=== PATIENT | female | born 1945 | race Caucasian/White ===

== ENCOUNTER 2024-02-28 23:53 | Inpatient (IN) | payer OTHER, MEDICARE, BC ==
[~2024-02-28] VITALS: Ht 157.5 cm; Wt 63.1 kg
[2024-02-29] MEDS ORDERED: FentaNYL Citrate 50 MCG/ML 2 ML Injection IV PRN ×2 (01:35→02:20)
[2024-02-29 02:05] LABS: BASOPHILS ABSOLUTE AUTO 0.09 K/mm3 (0.00-0.23); BASOPHILS PERCENT AUTO 1 % (0-2); EOSINOPHILS ABSOLUTE AUTO 0.08 K/mm3 (0.00-0.68); EOSINOPHILS PERCENT AUTO 1 % (0-6); Hematocrit 37.7 % (33.0-51.0); Hemoglobin 12.5 g/dL (11.5-16.0); IMMATURE GRAN ABSOLUTE AUTO 0.12 K/mm3 (0.00-0.10); IMMATURE GRAN PERCENT AUTO 1 % (0-1); LYMPHOCYTES ABSOLUTE AUTO 1.63 K/mm3 (0.84-5.20); LYMPHOCYTES PERCENT AUTO 12 % (21-46); MONOCYTES ABSOLUTE AUTO 1.18 K/mm3 (0.16-1.47); MONOCYTES PERCENT AUTO 8 % (4-13); Mean Corpuscular HGB 29.3 pg (26.0-34.0); Mean Corpuscular HGB Conc 33.2 g/dL (31.5-36.5); Mean Corpuscular Volume 88 fL (80-100); Mean Platelet Volume 12.1 fL (9.1-12.4); NEUTROPHILS ABSOLUTE AUTO 11.07 K/mm3 (1.96-9.15); NEUTROPHILS PERCENT AUTO 78 % (41-73); Platelet Count 196 K/mm3 (150-400); RDW Coefficient Variation 16.3 % (11.7-14.2); RDW Standard Deviation 52.8 fL (35.1-46.3); Red Blood Cell Count 4.27 M/mm3 (3.80-5.20); White Blood Cell Count 14.17 K/mm3 (4.00-11.30)
[2024-02-29 02:14] LABS: Albumin, Blood 3.1 g/dL (3.4-5.0); Albumin/Globulin Ratio 0.8 (0.8-1.8); Bilirubin, Total 0.3 mg/dL (0.1-1.0); Bun/Creatinine Ratio 19.5 (12.0-20.0); Calcium, Blood 8.5 mg/dL (8.5-10.1); Creatinine, Blood 0.97 mg/dL (0.40-1.00); Globulin, Blood 3.7 g/dL (2.2-4.0); Potassium, Blood 3.7 mmol/L (3.5-5.5); Total Protein, Blood 6.8 g/dL (6.4-8.2)
[2024-02-29] MEDS ORDERED: Ondansetron HCl 2 MG / ML 2ML Vial IV PRN (02:20)
[2024-02-29] MEDS ORDERED: NS 1,000 ML IV ONE (02:20)
[2024-02-29] MEDS ORDERED: FLU VACC TS2024-25(6MOS UP)/PF 45 MCG/0.5 ML SYRINGE IM ONE (02:20)
[2024-02-29] MEDS ORDERED: PANTOPRAZOLE SO40 M2 PO (04:22)
[2024-02-29] MEDS ORDERED: HYDRA25 PO (04:22)
[2024-02-29] MEDS ORDERED: LEVSOD75 PO (04:23)
[2024-02-29] MEDS ORDERED: METO50ER PO (04:23)
[2024-02-29] MEDS ORDERED: XARELTO20 M1 PO (04:23)
[2024-02-29] MEDS ORDERED: REPATHA SU140 MG/1 M SC (04:24)
[2024-02-29] MEDS ORDERED: Prinivil10 MG PO (04:24)
[2024-02-29] MEDS ORDERED: JARDIANCE10 MG PO (04:26)
[2024-02-29] MEDS ORDERED: ELIQUIS5 M3 PO (04:26)
[2024-02-29] MEDS ORDERED: CARTIA XT120 M9 PO (04:26)
[2024-02-29 04:30] VITALS: BP 138/81
[2024-02-29] MEDS ORDERED: CeFAZolin Sodium 2,000 MG in NS 100 ML IV SCH (05:00)
--- NOTE | 2024-02-29 05:55 | NUR ---
ADMIT NOTE/SHIFT SUMMARY REPORT RECEIVED FROM ER AT 0350. PT WAS BROUGHT UP ON GURNEY AND TRANSFERRED TO MEDICAL FLOOR ROOM 362 BED. PT ALERT ORIENTED CALLS APPROPRIATELY. C/O LT HIP PAIN R/T LT HIP FX. MEDICATED WITH FENTANYL WITH GOOD PAIN RELIEF. HERE AT THE BEDSIDE WITH THE PT. PT IS NPO AT THIS TIME PENDING SURGERY. PT HAS A HX OF CVA WITH RT SIDED WEAKNESS. REMAINS ON TELEMETRY AT AFIB AT 127. SHE HAS A HX OF AFIB. SHE WAS ORIENTED TO ROOM AND STAFF. STARTED ON NS AT 75. PT RESTING IN BED AT THIS TIME WITH CALL LIGHT IN REACH
[2024-02-29 08:23] VITALS: BP 134/84
[2024-02-29] MEDS ORDERED: Metoprolol Succinate 50 MG TABCR PO SCH (09:00)
[2024-02-29] MEDS ORDERED: Lisinopril 10 MG Tab PO SCH (09:00)
[2024-02-29 11:21] LABS: International Normalized Ratio 1.06; Prothrombin Time Results 11.3 Sec (9.7-11.5)
[2024-02-29 11:27] LABS: Anti-Xa UFH, PHA Monitoring >1.50 IU/mL
[2024-02-29] MEDS ORDERED: Dose Adjust by Pharmacy XX STA (11:53)
[2024-02-29] MEDS ORDERED: Heparin Sodium,Porcine/0.5 NS 500 ML IV SCH (11:55)
[2024-02-29] MEDS ORDERED: Tranexamic Acid 1,000 MG in NS 100 ML IV SCH (13:35)
[2024-02-29] MEDS ORDERED: HYDROcodone 5-APAP 325 TAB PO PRN (14:15)
[2024-02-29 15:40] VITALS: BP 143/75
--- NOTE | 2024-02-29 18:14 | NUR ---
SHIFT SUMMARY PT A&OX4 AND ANSWERS QUESTIONS APPROPRIATELY. PT RECEIVED SCHEDULED AND PRN MEDICATION. HEPARIN DRIP CURRENTLY GOING AT 15UNITS/KG/HR VERIFIED BY THERMODYNAMIC PHYSICIST HALLIE SERRANO. PT IS PAINFUL WITH MOVEMENT SURROUNDING LEF HIP. REPOSITIONED Q2HR TOLERATED BY PT. PT HAD FEMUR XRAYED TODAY AND A CT. VSS, NO COMPLAINTS OF CP/PRESSURE OR SOB. PT LEFT IN A POSITION OF SAFETY WITH FALL PRECAUTIONS IN PLACE AND CALL LIGHT IN REACH.
[2024-02-29 19:53] VITALS: BP 129/82
[2024-02-29] MEDS ORDERED: Clarify Drug Order XX ONE (20:30)
--- NOTE | 2024-02-29 20:35 | NUR ---
NO CHANGE IN HEPARIN DRIP PER PHARMACY- IN RANGE.
[2024-02-29] MEDS ORDERED: dilTIAZem HCL 240 MG CAP.CD PO SCH (21:00)
[2024-03-01] VITALS (19 sets, daily range): BP systolic 91–134; BP diastolic 58–87
[2024-03-01 03:08] LABS: BASOPHILS ABSOLUTE AUTO 0.05 K/mm3 (0.00-0.23); BASOPHILS PERCENT AUTO 1 % (0-2); EOSINOPHILS ABSOLUTE AUTO 0.07 K/mm3 (0.00-0.68); EOSINOPHILS PERCENT AUTO 1 % (0-6); Hematocrit 33.8 % (33.0-51.0); Hemoglobin 11.5 g/dL (11.5-16.0); IMMATURE GRAN ABSOLUTE AUTO 0.02 K/mm3 (0.00-0.10); IMMATURE GRAN PERCENT AUTO 0 % (0-1); LYMPHOCYTES ABSOLUTE AUTO 1.67 K/mm3 (0.84-5.20); LYMPHOCYTES PERCENT AUTO 19 % (21-46); MONOCYTES ABSOLUTE AUTO 1.42 K/mm3 (0.16-1.47); MONOCYTES PERCENT AUTO 16 % (4-13); Mean Corpuscular HGB 29.5 pg (26.0-34.0); Mean Corpuscular Volume 87 fL (80-100); Mean Platelet Volume 11.7 fL (9.1-12.4); NEUTROPHILS ABSOLUTE AUTO 5.82 K/mm3 (1.96-9.15); NEUTROPHILS PERCENT AUTO 64 % (41-73); Platelet Count 154 K/mm3 (150-400); RDW Coefficient Variation 16.4 % (11.7-14.2); RDW Standard Deviation 51.1 fL (35.1-46.3); White Blood Cell Count 9.05 K/mm3 (4.00-11.30)
[2024-03-01 03:31] LABS: Albumin, Blood 2.7 g/dL (3.4-5.0); Albumin/Globulin Ratio 0.7 (0.8-1.8); Bilirubin, Total 0.6 mg/dL (0.1-1.0); Bun/Creatinine Ratio 22.2 (12.0-20.0); Calcium, Blood 8.7 mg/dL (8.5-10.1); Creatinine, Blood 0.86 mg/dL (0.40-1.00); Globulin, Blood 3.7 g/dL (2.2-4.0); Potassium, Blood 3.9 mmol/L (3.5-5.5); Total Protein, Blood 6.4 g/dL (6.4-8.2)
--- NOTE | 2024-03-01 04:16 | NUR ---
REPORT GIVEN TO DAVID HANSON, WHO WILL BE TAKING OVER CARE OF PT. HEPARIN DRIP CONTINUES TO RUN AT 15 UNITS/KG/HR. PT REPOSITIONED THROUGH NIGHT. NPO AFTER MIDNIGHT.
--- NOTE | 2024-03-01 04:33 | NUR ---
NURSE NOTE THIS RN RECEIVED REPORT FROM LASHANDA HANSON. THIS RN TOOK OVER CARE OF PATIENT. PAUSED HEPARIN UNTIL 0530 PER PHARMACY.
[2024-03-01] MEDS ORDERED: Dose Adjust by Pharmacy XX STA (04:36)
[2024-03-01] MEDS ORDERED: Levothyroxine Sodium 0.088 MG Tab PO SCH (06:00)
--- NOTE | 2024-03-01 06:27 | NUR ---
SHIFT SUMMARY PATIENT IS ALERT AND ORIENTED. PATIENT HAS HAD NO ACUTE EVENTS THIS SHIFT. PATIENT HAS NEEDS FOR PAIN MEDS FROM PR. PATIENT HAS HAD NO COMPLAINED OF SOB, NAUSEA OR VOMITTING. PATIENT HAS HAD HEPARIN STOPPED AT 0600 FOR SURGERY TODAY. BED IN LOCKED AND LOWEST POSITION. CALL LIGHT IN PLACE. WILL MONITOR UNTIL SHIFT CHANGE.
[2024-03-01] MEDS ORDERED: Bupivacaine 0.5% Inj 10 ML Vial ONE (07:11)
[2024-03-01] MEDS ORDERED: propofoL 150 ML IV ONE (07:11)
--- NOTE | 2024-03-01 12:08 | NUR ---
PT TO OR AT 1200. PT A&OX4, VSS, NPO, KELLY IN PLACE DRAINING TO GRAVITY, AND PAIN MANAGED PER EMAR. THIS NURSE CALLED MATTING PRESS TENDER HALEY AND GAVE REPORT. MARGIE HARE TO ASSUME CARE OF PT.
[2024-03-01] MEDS ORDERED: CeFAZolin Sodium 2,000 MG VIAL ONE (12:15)
[2024-03-01] MEDS ORDERED: Lactated Ringer's 1,000 ML IV ONE (12:16)
[2024-03-01] MEDS ORDERED: Lactated Ringer's 1,000 ML IV SCH (12:20)
[2024-03-01] MEDS ORDERED: Ropivacaine 0.5% HCl/Pf 123.125 MG,EPINEPHrine HCL 0.25 MG,Ketorolac Tromethamine 15 MG... INFIL SCH (12:40)
[2024-03-01] MEDS ORDERED: Phenylephrine HCl 100 MCG/ML-NS 10MLSYR (1MG/10ML) ONE ×2 (13:41→14:43)
[2024-03-01] MEDS ORDERED: Ondansetron HCl 2 MG / ML 2ML Vial ONE ×2 (13:47→17:06)
[2024-03-01] MEDS ORDERED: Dexamethasone Sod Phos 10 MG/ML 1ML VIAL ONE (13:47)
[2024-03-01] MEDS ORDERED: Vasopressin 20 UNITS/ML 1ML Vial ONE ×2 (13:52→16:01)
--- NOTE | 2024-03-01 14:22 | NUR ---
03/01/24 1422 Ran,Garbielle SPINAL BLOCK COMPLETED BY UPON ENTRY TO OR. PATIENT TOLERATED WELL. PATIENT ARRIVED TO OR WITH KELLY CATHETER IN PLACE.
[2024-03-01] MEDS ORDERED: Ketorolac Tromethamine 30mg Vial ONE (14:49)
[2024-03-01] MEDS ORDERED: ePHEDrine Sulfate 50 MG/ML 1ML Injection ONE (15:13)
[2024-03-01] MEDS ORDERED: Tranexamic Acid 100 ML IV ONE (16:11)
[2024-03-01] MEDS ORDERED: Vancomycin HCl 1000 MG ADDvantage ONE ×2 (16:11→17:12)
[2024-03-01] MEDS ORDERED: Metoclopramide HCl 5MG / ML 2ML Vial ONE (17:06)
[2024-03-01] MEDS ORDERED: FentaNYL Citrate 50 MCG/ML 2 ML Injection ONE (17:06)
[2024-03-01] MEDS ORDERED: CeFAZolin Sodium 1000 mg Vial ONE ×2 (17:10)
[2024-03-01] MEDS ORDERED: NS 250 ML IV PRN (20:15)
--- NOTE | 2024-03-01 20:18 | NUR ---
PACU TO SURGICAL FLOOR PT ARRIVED TO UNIT FROM PACU POST LEFT TOTAL HIP SURGERY. PT DROWSY, BUT A/OX4. IV SL POST ARRIVAL. AQUACEL TO LEFT HIP 2X CDI WITH POLAR PACK IN PLACE. PT DENIES N/V, CP OR PAIN IN GENERAL. UNABLE TO WIGGLE TOES AT THIS TIME DUE TO SPINAL. KELLY TO GRAVITY. SCD'S TO BLE. FAMILY AT BEDSIDE. PT REQUESTING WARM TEA AT THIS TIME AND IS ABLE TO MAKE NEEDS KNOWN. POST-OP CONTIN. VITALS PER ORDER. CALL LIGHT IN REACH WITH BED LOCKED AND IN LOWEST POSITION.
[2024-03-01] MEDS ORDERED: CeFAZolin Sodium 2,000 MG in NS 100 ML IV SCH (22:00)
[2024-03-02 04:09] VITALS: BP 93/55
--- NOTE | 2024-03-02 04:50 | NUR ---
SHIFT SUMMARY POD 1 LEFT TOTAL HIP. AQUACEL CDI. CRYO TO HIP TOLERATED. MEDICATED TWICE DURING SHIFT FOR PAIN. TOLERATING PO INTAKE, DENIES N/V. IV ABX INFUSED PER ORDERS. KELLY TO GRAVITY DRAIN. SPO2% ABOVE 93% ON RA. SCD TO BLE. PT REPORTS RESTING T/O SHIFT. PT CURRENTLY RESTING IN BED WITH CALL LIGHT IN REACH. PLAN TO WORK WITH THERAPY TODAY. WILL GIVE REPORT TO ONCEDNA HANSON
[2024-03-02] MEDS ORDERED: Levothyroxine Sodium 0.088 MG Tab PO SCH (06:00)
[2024-03-02 07:20] VITALS: BP 107/66
[2024-03-02 08:15] VITALS: BP 106/71
[2024-03-02 08:59] LABS: Hematocrit 26.9 % (33.0-51.0); Hemoglobin 8.8 g/dL (11.5-16.0); Mean Corpuscular HGB 28.9 pg (26.0-34.0); Mean Corpuscular HGB Conc 32.7 g/dL (31.5-36.5); Mean Corpuscular Volume 88 fL (80-100); Platelet Count 135 K/mm3 (150-400); RDW Coefficient Variation 16.3 % (11.7-14.2); RDW Standard Deviation 52.2 fL (35.1-46.3); Red Blood Cell Count 3.05 M/mm3 (3.80-5.20); White Blood Cell Count 15.22 K/mm3 (4.00-11.30)
[2024-03-02] MEDS ORDERED: Apixaban 5 MG Tab PO SCH (09:00)
[2024-03-02 09:04] LABS: Mean Platelet Volume 13.3 fL (9.1-12.4)
--- NOTE | 2024-03-02 10:36 | NUR ---
MORNING NOTE ASSUMED CARE AT APPROX 0715. PATIENT ALERT AND ORIENTED X4. CAN BE A BIT FORGETFUL - STATES THAT IT IS BASELINE FROM A CVA IN THE PAST. USES A CANE AT BASELINE WITH MOBILITY - NO OTHER CVA DEFICITS NOTED. COMMUNICATES NEEDS EFFECTIVELY. VSS. TELEMETRY SHOWING AFIB 100 PER LUMBER HANDLER. BP SOFT, SBP 100s-110s. MAP >65. PO METOPROLOL ADMINISTERED PER EMAR, PO LISINOPRIL HELD. MD YORK AWARE - DCcorey LISINOPRIL. TOLERATING ROOM AIR, SATs >90%. RR EVEN, UNLABORED. POD 1 L HIP REVISION - AQUACEL DRESSING C/D/I. PAIN TOLERABLE. TOLERATING PO INTAKE. UP WITH 1P FWW GB TO CHAIR THIS MORNING. AWAITING PT EVAL. COOLING DEVICE IN PLACE. KELLY CATHETER REMOVED. CALL LIGHT IN REACH.
--- NOTE | 2024-03-02 14:53 | NUR ---
REPORT GIVEN TO NICA RN TO ASSUME CARE AT THIS TIME
[2024-03-02 15:06] VITALS: BP 97/55
--- NOTE | 2024-03-02 17:02 | NUR ---
END OF SHIFT NOTE: NO ACUTE CHANGES, SEE PREVIOUS NOTE
[2024-03-02 19:23] VITALS: BP 104/62
[2024-03-03] VITALS (10 sets, daily range): BP systolic 89–105; BP diastolic 51–64
[2024-03-03] MEDS ORDERED: HYDROcodone 5-APAP 325 TAB PO PRN (00:25)
[2024-03-03] MEDS ORDERED: Metoprolol Tartrate 1 MG/ML 5 ML VIAL IV ONE (01:45)
[2024-03-03 04:54] LABS: Hematocrit 25.9 % (33.0-51.0); Hemoglobin 8.6 g/dL (11.5-16.0); Mean Corpuscular HGB Conc 33.2 g/dL (31.5-36.5); Mean Corpuscular Volume 87 fL (80-100); Platelet Count 143 K/mm3 (150-400); RDW Coefficient Variation 16.5 % (11.7-14.2); RDW Standard Deviation 51.8 fL (35.1-46.3); Red Blood Cell Count 2.97 M/mm3 (3.80-5.20); White Blood Cell Count 12.75 K/mm3 (4.00-11.30)
[2024-03-03 05:02] LABS: Mean Platelet Volume 13.3 fL (9.1-12.4)
--- NOTE | 2024-03-03 05:38 | NUR ---
SHIFT [employer] POD 1 S/P ORIF,CRYO TO LEFT HIP. PAIN MANAGED PER EMAR AND ICE CRYO MUKUND. PT APPEARS TO HAVE SLEPT T/O MOST OF SHIFT. HR NOW SR AT 84 PER TELE. 2 PERSON TO BSC. BILLY CDI. IS TOLERATING REGUALAR DIET. IV SL. P;AN TO GIVE PREPORT TO ONCONCAROL HANSON.
--- NOTE | 2024-03-03 10:45 | NUR ---
MORNING NOTE ASSUMED CARE AT 0715. PATIENT ALERT AND ORIENTED X4. CAN BE A BIT FORGETFUL. COMMUNICATING NEEDS EFFECTIVELY. FOLLOWS COMMANDS APPROPRIATELY. TELEMETRY SHOWING SINUS W/ 1ST DEGREE BBB 80s PER SHORT ORDER FRY COOK. BP SOFT, SBP 90s-100s. MAP >65. ASYMPTOMATIC OF SOFT BP. HOME DOSE OF PO METOPROLOL ADMINISTERED PATIENT DID REQUIRE X1 METOPROLOL PUSH OVERNIGHT FOR RATE CONTROL. ON ROOM AIR, SATs >90%. RR EVEN, UNLABORED. DECREASED URINARY OUTPUT NOTED OVERNIGHT SINCE KELLY REMOVAL - WILL CONTINUE TO MONITOR. POD 2 L HIP REVISION - DRESSING WITH MINIMAL SEROSANGUINOUS DRAINAGE. PAIN TOLERABLE PER EMAR AND WITH COOLING DEVICE. UP WITH 1-2P ASSIST FWW GB. DECLINED AMBULATING TO CHAIR THIS MORNING - IS CURRENTLY SLEEPING. CALL LIGHT IN REACH.
--- NOTE | 2024-03-03 17:14 | NUR ---
SHIFT SUMMARY NO ACUTE CHANGES SINCE PREVIOUS DOCUMENTATION. PATIENT MOSTLY SLEPT T/O DAY - ENCOURAGING MOBILITY. NO EVENTS REPORTED BY TEACHER'S ASSISTANT. SBP SUSTAINING 90s. MAP >65. PATIENT REMAINS ASYMPTOMATIC. UP TO RECLINER CHAIR, BSC WITH 1P ASSIST FWW GB. DENIES DIZZINESS. POD 2 L TOTAL HIP REVISION - MINIMAL DRAINAGE TO AQUACEL DRESSING. MANAGING PAIN PER EMAR AND WITH COOLING DEVICE. TOLERATING PO INTAKE. MINIMAL URINARY OUTPUT NOTED - VOIDED A TOTAL OF 200ML TODAY. BLADDER SCAN PERFORMED SHOWING <50ML. ENCOURAGING INCREASED PO INTAKE. NO BM THIS SHIFT. AT BEDSIDE T/O DAY. CALL LIGHT IN REACH. WILL CONTINUE TO MONITOR AND REPORT TO ONCOMING RN.
[2024-03-04] VITALS (7 sets, daily range): BP systolic 95–137; BP diastolic 43–80
--- NOTE | 2024-03-04 04:14 | NUR ---
SHIFT SUMMARY WILDER WAS ALERT AND ABLE TO SLOWLY ANSWER ALL ORIENTATION QUESTIONS CORRECTLY ON ASSESMENT. PT PAIN WELL UNDER CONTROL TONIGHT. SOME SHADOWING NOTED TO MIDDLE OF AQUACEL. PT NOT DRINKING OR VOIDING MUCH, FLUID ENCOURAGED. PT ABLE TO STAND AND PIVOT TO BSC. PT IS FORGETFUL AND SLOW TO RESPOND, BUT ABLE TO CALL APPROPRIATELY AND MAKE NEEDS KNOWN. NO ACUTE EVENTS TONIGHT. NO NOTED CHANGES TO PT CONDITION.
[2024-03-04] MEDS ORDERED: Lactated Ringer's 1,000 ML IV SCH ×2 (04:55→13:55)
--- NOTE | 2024-03-04 12:00 | NUR ---
DR. NEGRO AT BEDSIDE TO ASSESS PT. PT IS HYPOTENSIVE, SINUS TACH PER PLASTIC CNC MACHINE OPERATOR, METOPROLOL GIVEN THIS AM FOR RATE CONTROL. NOTIFIED DR. NEGRO, PT STATES SHE FEELS DIZZY AND DROWSY BUT IS RESPONSIVE. ORDER RECIEVED FOR LR FLUID BOLUS 500ML, OK TO GIVE NORCO PER EMAR WHEN DUE PER MD. CALL LIGHT IN REACH.
[2024-03-04] MEDS ORDERED: Lactated Ringer's 500 ML IV ONE (12:45)
[2024-03-04 14:20] LABS: Hematocrit 25.3 % (33.0-51.0); Hemoglobin 8.5 g/dL (11.5-16.0); Mean Corpuscular HGB 29.5 pg (26.0-34.0); Mean Corpuscular HGB Conc 33.6 g/dL (31.5-36.5); Mean Corpuscular Volume 88 fL (80-100); Mean Platelet Volume 12.8 fL (9.1-12.4); Platelet Count 162 K/mm3 (150-400); RDW Coefficient Variation 16.7 % (11.7-14.2); RDW Standard Deviation 53.5 fL (35.1-46.3); Red Blood Cell Count 2.88 M/mm3 (3.80-5.20); White Blood Cell Count 11.56 K/mm3 (4.00-11.30)
[2024-03-04 14:37] LABS: Anion Gap 14 mmol/L (3-11); Blood Urea Nitrogen 45 mg/dL (8-24); CO2, Blood 20 mmol/L (21-32); Calcium, Blood 7.8 mg/dL (8.5-10.1); Chloride, Blood 100 mmol/L (98-108); Creatinine, Blood 2.64 mg/dL (0.40-1.00); Glomerular Filtration Rate 18 (60-); Glucose, Blood 136 mg/dL (70-99); Phosphorus, Blood 4.2 mg/dL (2.5-4.9); Potassium, Blood 4.3 mmol/L (3.5-5.5); Sodium, Blood 130 mmol/L (136-145)
[2024-03-04 14:41] LABS: BAND PERCENT MAN 3 % (0-8); BASOPHILS PERCENT MAN 0 % (0-2); EOSINOPHILS ABSOLUTE MAN 0.23 K/mm3 (0.00-0.68); EOSINOPHILS PERCENT MAN 2 % (0-6); LYMPHOCYTES ABSOLUTE MAN 0.69 K/mm3 (0.84-5.20); LYMPHOCYTES PERCENT MAN 6 % (21-46); MONOCYTES ABSOLUTE MAN 0.69 K/mm3 (0.16-1.47); MONOCYTES PERCENT MAN 6 % (4-13); NEUTROPHILS ABSOLUTE MAN 9.94 K/mm3 (1.96-9.15); SEG NEUTROPHILS PERCENT MAN 83 % (41-73); TOTAL CELLS COUNTED 100
--- NOTE | 2024-03-04 17:16 | NUR ---
SHIFT SUMMARY PT IS A/O X4, 2 ASST W/ FWW AND GB, AWAKE AND RESPONSIVE. SEE PREVIOUS NOTE ABOUT HYPOTENSION AND TACHYCARDIA, DR. NEGRO AWARE. PT STATES SHE FEELS "MUCH BETTER" AFTER IV FLUID BOLUS. HAVING CONTINENT VOIDS USING BSC. PT REQUIRING PAIN MEDS PER EMAR INTERMITTENTLY, CURRENTLY RATES PAIN A 0/10. PT DID HAVE EPISODE WHERE SHE STATED SHE FELT SOB, PT WAS RECLINED IN RECLINER AT THAT TIME. ELEVATED PT'S HEAD AND ENCOURAGED DEEP BREATHING, 02 SATS 100% ON RA, VSS, PT DENIED CHEST PAIN/PRESSURE AND STATED THE SOB RESOLVED AFTER HER HEAD WAS ELEVATED. BP STABLE AT THIS TIME, PT DENIES DIZZINESS/DROWSINESS. NO ACUTE TELE CHANGES THIS SHIFT PER FLUTE POLISHER. DRESSING TO L HIP C/D/I, CIRCULATION INTACT TO LLE. DR. NEGRO AWARE OF KIDNEY FUNCTION. PT CURRENTLY RESTING PEACEFULLY, CALL LIGHT IN REACH.
--- NOTE | 2024-03-04 18:43 | NUR ---
SHIFT UPDATE PT CONTINUES TO REPORT SOB BUT IS SHOWING NO SIGNS OF RESPIRATORY DISTRESS. RESPIRATORY R/R EVEN AND UNLABORED, O2 SATS >92%. NOTIFIED DR. NEGRO, NO FURTHER ORDERS RECIEVED.
[2024-03-05 04:32] VITALS: BP 110/65
[2024-03-05 04:56] LABS: Bun/Creatinine Ratio 22.4 (12.0-20.0); Calcium, Blood 7.9 mg/dL (8.5-10.1); Creatinine, Blood 1.92 mg/dL (0.40-1.00); Potassium, Blood 4.4 mmol/L (3.5-5.5)
--- NOTE | 2024-03-05 06:13 | NUR ---
SHIFT SUMMARY POD 4 L HIP REVISION. NO ACUTE CHANGES OVERNIGHT. VSS, TELE IN USE: SINUS @ 83. PT HR INCREASES TO APPROX 140s PER CARDIOVASCULAR INVASIVE SPECIALIST c AMBULATION, PT REPORTS MIN SOB c EXERTION, OTHERWISE ASYMPTOMATIC. A&0 x4, REQUIRES MIN REDIRECTION c AMB, INTERMITTENTLY ANX. TOLERATING ORALS. VOIDING. SMALL BM. AQUACEL x2 c MOD SHADOWING IN CENTER OF DRESSINGS, OTHERWISE D/I. PT REPORTS PAIN TOLERABLE, DENIES PAIN MEDS PER EMAR, POLAR PACK IN USE. AMBULATES USING FWW c GB & 2 PERSON ASSIST TO STAND/PIVOT TO BSC. PT WEAK, REQUIRES 2 PEOPLE TO GET BACK INTO BED & REPOSITION. TRIANGLE FOAM IMMOBILIZER BETWEEN LEGS WHILE IN BED. CALL LIGHT IN REACH, BED ALARM IN USE, WILL REPORT TO DAY RN.
[2024-03-05 07:23] VITALS: BP 117/61
[2024-03-05 15:34] VITALS: BP 128/61
--- NOTE | 2024-03-05 16:18 | NUR ---
SHIFT SUMMARY PT IS A/O X4, FOLLOWING COMMANDS, 2 ASST W/ FWW AND GB TO [facility] DRESSING TO L HIP C/D/I, CIRCULATION INTACT TO L FOOT. IV FLUIDS GIVEN ORDERED, PT ENOURAGED TO DRINK PO FLUIDS. TOLERATING REG DIET. PAIN DENIES NEED FOR PAIN MEDS. VOIDING AND CONT BMS. PT DENIES CHEST PAIN/PRESSURE/SOB. PT IS INTERMITTENTLY TACHY IN THE 130'S WHEN TRANSFERING TO [facility] BUT RETURNS TO 100-115 AT REST. PT CURRENTLY RESTING W/ CALL LIGHT IN REACH.
--- NOTE | 2024-03-05 16:34 | NUR ---
"SPiritual Care Visit | Pt Request Pt. is awake in bed and welcomes my visit. Pt. verbalized that she was waiting for a confidential investigator visit all weekend. Pt. is pleasant. Facilitated a life review and listen with interest and empathy. Pt. verbalized that she is from out of town and is only visiting the area to care for her daughter. Pt. displays evidence of awareness and engagement. Prayed for the Pt. Pt. verbalized gratitude for the spiritual care visit, and welcomed this confidential investigator to return."
--- NOTE | 2024-03-05 17:40 | NUR ---
TELE CALLED AT APPROX 1730 STATING PT'S HR HAS BEEN INCREASING TODAY, CURRENTLY SUSTAINING IN THE 130'S AND UP TO 150 WHEN PT IS AMBULATING. CALL PLACED TO DR. NEGRO, NO ANSWER, MESSAGE LEFT. PT DENIES CHEST PAIN/PRESSURE AND IS RESTING PEACEFULLY IN RECLINER. CALL LIGHT IN REACH.
--- NOTE | 2024-03-05 18:06 | NUR ---
CALL PLACED TO DR. NEGRO AGAIN, NOTIFIED OF INCREASING HR AND THAT PT IS SUSTAINING SINUS TACH IN THE 130'S AND UP TO [address] NEGRO ADVISED TO WAIT UNTIL 1830 FOR PAIN MEDICATION TO BE EFFECTIVE PT IS PAINFUL, AND IF PT IS STILL SUSTAINING IN THE 130'S, SCHEDULED PM CARDIZEM OK TO BE GIVEN EARLY AT THAT TIME. PT CONTINUES TO DENY CHEST PAIN/PRESSURE.
[2024-03-05 18:45] VITALS: BP 104/69
[2024-03-05 19:47] VITALS: BP 101/78
[2024-03-05] MEDS ORDERED: Metoprolol Tartrate 1 MG/ML 5 ML VIAL IV PRN (20:20)
--- NOTE | 2024-03-05 20:53 | NUR ---
TELEMETRY NOTIFIED ME OF INCREASED SUSTAINED HR OF 120-130, SINCE 1829 PATIENT IS SOUND ASLEEP. HOSPITALIST NOTIFIED AND HE PUT IN ORDER FOR LOPRESSOR. LOPRESSOR 1 MG IVP AT 2045. TELEMETRY NOIFIED.
[2024-03-06 04:16] VITALS: BP 133/67
--- NOTE | 2024-03-06 04:40 | NUR ---
SHIFT SUMMARY PATIENT SLEPT IN LONG INTERVALS. MEDICATED FOR PAIN TWICE. AFTER HAVING CARDIAC EPISODE OF A FLUTTER WITH RATE 120-130. HOSPITALIST ORDER LOPRESSOR 1MG/IV/Q4. OF THIS ENTRY, I ONLY GAVE LOPRESSOR ONCE. AND SINCE 2328 HR CONVERTED TO SR WITH RATE IN THE 80'S
[2024-03-06 07:22] VITALS: BP 130/65
[2024-03-06 09:16] LABS: Bun/Creatinine Ratio 24.3 (12.0-20.0); Calcium, Blood 8.4 mg/dL (8.5-10.1); Creatinine, Blood 1.11 mg/dL (0.40-1.00); Potassium, Blood 3.9 mmol/L (3.5-5.5)
--- NOTE | 2024-03-06 14:20 | NUR ---
DISCHARGE SUMMARY POD5 L HIP REVISION, A/OX4 THOUGH SHE IS A BIT FORGETFUL BUT REORIENTS EASILY, NOT IMPULSIVE AND HAS NOT TRIED GETTING UP BY HERSELF TODAY, CALLS APPROPRIATELY, STAND PIVOT TO BSC. AQUACELL DRESSING CHANGED THIS SHIFT AND REPLACED WITH 2 NEW AQUACELSS IN THE SAME ORIENTATION. REPORT GIVEN TO MALINDA AT [facility], PICKED UP FOR TRANSPORT AT 1420
== END 2024-03-06 14:17 | DRG 467 ==
LOC: ER 23:53 → SURS 02-29 02:16 → MEDS 02-29 02:16 → ERHOLD 02-29 02:16 → MEDS 02-29 03:58 → SURS 03-01 14:30
PROVIDERS: Emergency Medicine; Internal Medicine; Orthopaedic Surgery Sports Medicine; ADMIT Internal Medicine
PROC: 0SPB0JZ Removal of Synthetic Substitute from Left Hip Joint, Open Approach (ICD-10-PCS; 2024-03-01)
PROC: 0QS704Z Reposition Left Upper Femur with Internal Fixation Device, Open Approach (ICD-10-PCS; 2024-03-01)
PROC: 0SRB01Z Replacement of Left Hip Joint with Metal Synthetic Substitute, Open Approach (ICD-10-PCS; principal; 2024-03-01 12:00)
DX: S72.92XA Unspecified fracture of left femur, initial encounter for closed fracture (principal); E87.1 Hypo-osmolality and hyponatremia; I48.20 Chronic atrial fibrillation, unspecified; M97.02XA Periprosthetic fracture around internal prosthetic left hip joint, initial encounter; N17.9 Acute kidney failure, unspecified; I10 Essential (primary) hypertension; E03.9 Hypothyroidism, unspecified; I95.9 Hypotension, unspecified; E86.0 Dehydration; W01.0XXA Fall on same level from slipping, tripping and stumbling without subsequent striking against object, initial encounter; Z87.890 Personal history of sex reassignment; Z79.01 Long term (current) use of anticoagulants
CPT/HCPCS: 36415; 72170; 72192; 73502; 73552; 80048; 80053; 80069; 83880; 85025; 85027; 85520; 85610; 85730; 86850; 86900; 86901; 93005; 93010; 94762; 96374; 97110; 97162; 97530; 99285-25; A6010; A9270; C1713; C1769; C1776; J0171; J0690; J0735; J1100; J1644; J1885; J2371; J2405; J2704; J2765; J2795; J3010; J3370; J7030; J7050; J7120

== ENCOUNTER 2024-03-20 07:18 | Inpatient (IN) | payer MEDICARE, BC ==
[~2024-03-20] VITALS: Ht 157.5 cm; Wt 68.7 kg
[~2024-03-20 07:18] MED LIST: CARTIA XT120 M9 PO; ELIQUIS5 M3 PO; HYDRA25 PO; JARDIANCE10 MG PO; LEVSOD75 PO; METO50ER PO; PANTOPRAZOLE SO40 M2 PO; Prinivil10 MG PO; REPATHA SU140 MG/1 M SC; XARELTO20 M1 PO
[2024-03-20] MEDS ORDERED: NS 1,000 ML IV SCH (07:35)
[2024-03-20] MEDS ORDERED: Diltiazem HCl 5 MG / ML 5ML Vial IV ONE ×2 (07:40→08:35)
[2024-03-20 07:50] LABS: BASOPHILS ABSOLUTE AUTO 0.08 K/mm3 (0.00-0.23); BASOPHILS PERCENT AUTO 1 % (0-2); EOSINOPHILS ABSOLUTE AUTO 0.09 K/mm3 (0.00-0.68); EOSINOPHILS PERCENT AUTO 1 % (0-6); Hematocrit 23.8 % (33.0-51.0); Hemoglobin 7.5 g/dL (11.5-16.0); IMMATURE GRAN ABSOLUTE AUTO 0.06 K/mm3 (0.00-0.10); IMMATURE GRAN PERCENT AUTO 1 % (0-1); LYMPHOCYTES ABSOLUTE AUTO 1.68 K/mm3 (0.84-5.20); LYMPHOCYTES PERCENT AUTO 17 % (21-46); MONOCYTES ABSOLUTE AUTO 1.36 K/mm3 (0.16-1.47); MONOCYTES PERCENT AUTO 14 % (4-13); Mean Corpuscular HGB 28.2 pg (26.0-34.0); Mean Corpuscular HGB Conc 31.5 g/dL (31.5-36.5); Mean Corpuscular Volume 90 fL (80-100); Mean Platelet Volume 11.6 fL (9.1-12.4); NEUTROPHILS ABSOLUTE AUTO 6.46 K/mm3 (1.96-9.15); NEUTROPHILS PERCENT AUTO 66 % (41-73); NRBC ABSOLUTE 0.03 K/mm3 (0.00-0.02); NRBC Auto 0.3 /100 WBC (0.0-0.2); Platelet Count 408 K/mm3 (150-400); RDW Coefficient Variation 18.3 % (11.7-14.2); RDW Standard Deviation 58.2 fL (35.1-46.3); Red Blood Cell Count 2.66 M/mm3 (3.80-5.20); White Blood Cell Count 9.73 K/mm3 (4.00-11.30)
[2024-03-20 08:03] LABS: Calcium, Blood 8.7 mg/dL (8.5-10.1); Creatinine, Blood 1.07 mg/dL (0.40-1.00); Potassium, Blood 3.5 mmol/L (3.5-5.5)
[2024-03-20] MEDS ORDERED: FLU VACC TS2024-25(6MOS UP)/PF 45 MCG/0.5 ML SYRINGE IM SCH (09:40)
[2024-03-20] MEDS ORDERED: Ondansetron HCl 2 MG / ML 2ML Vial IV PRN (09:45)
[2024-03-20] MEDS ORDERED: Potassium Chl 20MEQ/Water100ML 100 ML IV SCH (09:50)
[2024-03-20] MEDS ORDERED: Potassium Chloride 20 MEQ TabCR PO ONE (12:00)
[2024-03-20 14:35] VITALS: BP 96/69
[2024-03-20] MEDS ORDERED: FURO40 PO (14:53)
[2024-03-20] MEDS ORDERED: Acetaminophen650 M1 PO (14:55)
[2024-03-20] MEDS ORDERED: DULCOLAX5 MG PO (14:56)
[2024-03-20] MEDS ORDERED: HYDRA25 PO (14:57)
--- NOTE | 2024-03-20 15:20 | NUR ---
BR. CHUA UPDATED ON PT LEFT HIP TO KNEE INSICION HAVING REDDNESS AND OOZING SEROUS FLUID.
[2024-03-20] MEDS ORDERED: Lactated Ringer's 500 ML IV SCH (15:30)
[2024-03-20] MEDS ORDERED: Bisacodyl 5 MG TabEC PO PRN (15:45)
[2024-03-20] MEDS ORDERED: Acetaminophen 325 MG TABLET PO PRN (15:45)
[2024-03-20 15:54] LABS: Hematocrit 27.9 % (33.0-51.0); Hemoglobin 9.1 g/dL (11.5-16.0)
[2024-03-20] MEDS ORDERED: Metoprolol Tartrate 25 MG Tab PO SCH (16:00)
[2024-03-20 16:29] VITALS: BP 106/74
--- NOTE | 2024-03-20 16:56 | NUR ---
"Spiritual Care visit | Pt. Request Pt. is resting in bed, but responds when I enter her room. Pt. welcomed my visit. Facilitated a short life review and focused upon her re-admission. Pt. verbalized that her hip is the primary reason for returning to the hospital. Listen with empathy and a calming presence. Pt. requested prayer. Prayed with the Pt. Pt. verbalized gratitude for the spiritual care visit and welcomed this automobile club membership sales agent to return."
--- NOTE | 2024-03-20 18:20 | NUR ---
SHIFT SUMMARY PT ADMITTED FROM ER, THIS RN RECEIVED REPORT FROM CITY CARRIER ASSISTANT GAYLE. PT TO ROOM VIA GURNEY AND SLID OVER TO PCU BED VIA MEDICAL STAFF. A&OX4, OBEYS COMMANDS, ABLE TO MAKE NEEDS KNOWN, IS A POOR HISTORIAN WITH ODD AFFECT, PT HAS ORDERS TO AMBULATE WITH ASSISTANCE/PT HAS NOT GOTTEN OUT OF BED FOR THIS RN, PT IS POST L HIP REPLACEMENT ON 03/01, LIMITED RANGE OF MOTION TO LEFT HIP. SPO2 GREATER THAN 95% ON RA, LUNGS CLEAR T/O, NO SIGNS OF RESPIRATORY DISTRESS NOTED. CONTINUOUS TELE MONIORING, PER SENIOR IOS SOFTWARE ENGINEER PT IS IN SINUS RHYTHM WITH PVC S, HR UPON ARRIVAL 130-140 S/HR IMPROVED WITH METOPROLOL TO 100-110 S, BP STABLE ON THE SOFT SIDE OF NORMAL WITH MAP GREATER THAN 65, PT DENIES DIZZINESS/LIGHT HEADEDNESS, DENIES CHEST P/P, PT DOES REPORT FEELING LIKE HER HEART WAS RACING. PT DENIES NAUSEA, REPORTS HAVING A BM YESTERDAY 03/19, PT REPORTING DECREASE IN APPITITE. PT HAS NO URINE OUTPUT SINCE COMING TO THE FLOOR. LEFT HIP INSISION FROM HIP TO KNEE, SIGHT HAS REDNESS/ DISCOLORATION TO THE AREA AND OOZING CLEAR FLUID AND SEROUS FLUID, MARKED THE REDNESS WITH A SKIN MARKER, LEFT THE STERI STRIPS IN PLACE AND OPEN TO AIR WITH DRY FLOW UNDER LEG. THE INCISION SITE BEGAN TO BLEED MORE SAURATING THE DRY FLOW WITH HUMBERTO BLOOD, ABD BANDAGE AND MAYLIN WRAP APPLIED TO HOLD PRESSURE. DR. CHUA MADE AWARE OF CONCERNS WITH INCISION SITE ULTRASOUND OF THAT LEFT HIP COMPLETED THIS SHIFT DR. CHUA UPDATED ON INCREASED BLEEDING FROM INCISION SITE. WOUND CULTURES COLLECTED DR. PIERCE CONSULTED. UPDATED BY MEDICAL STAFF PER PATIENT REQUEST.
[2024-03-20] MEDS ORDERED: CeFAZolin Sodium 1,000 MG in NS 50 ML IV SCH (18:27)
[2024-03-20] MEDS ORDERED: Vancomycin HCL 1,500 MG in NS 250 ML IV ONE (18:35)
--- NOTE | 2024-03-20 19:00 | NUR ---
ASSUMPTION OF CARE: THIS RN TO TAKE OVER CARE OF PATIENT. PATIENT IS ALERT AND ORIENTED X4 AND ACTIVE IN HER CARE. IS ABLE TO MAKE NEEDS KNOWN AND USES CALL LIGHT APPRORIATELY. PAIN IS UNDER CONTROL AT THIS TIME. BED AT THE LOWEST POSITION AND CALL LIGHT WITHIN REACH.
[2024-03-20 19:23] VITALS: BP 121/66
[2024-03-20] MEDS ORDERED: Apixaban 5 MG Tab PO SCH (21:00)
[2024-03-20 22:53] VITALS: BP 101/75
--- NOTE | 2024-03-20 22:55 | NUR ---
PATIENTS HEART RATE AND RYTHM COMING IN AND OUT OF AFIB TO SINUS TACH WITH RATE TOUCHING INTO THE 150'S BUT SUSTAINING IN THE 140'S. METOPROLOL WAS GIVEN PER EMAR SCHEDULED WILL CONTINUE TO MONITOR HEART RATE AND RYTHM. PATIENT REPORTS FEELING LIKE WORK OF BREATHING IS ELEVATED. VITAL SIGNS STABLE.
[2024-03-21] VITALS (10 sets, daily range): BP systolic 99–132; BP diastolic 58–90
--- NOTE | 2024-03-21 02:11 | NUR ---
CALL TO MD: CALL WAS PLACED TO MD UPDATING REGARDING HEART RATE. NEW ORDERS WERE PLACED, EKG DONE AND RESULTS IN CHART.
[2024-03-21] MEDS ORDERED: Metoprolol Tartrate 1 MG/ML 5 ML VIAL IV ONE (02:15)
--- NOTE | 2024-03-21 02:34 | NUR ---
TO BEDSIDE TO ROUND ON PATIENT. PLACED NEW ORDERS AND FLUID BOLUS IS CURRENTLY RUNNING. PATIENT DENIED CHEST PAIN/PRESSURE OR FEELING LIKE WORK OF BREATHING WAS INCREASED. IS RESTING WITH BED IN LOWEST POSITION AND CALL LIGHT WITHIN REACH.
[2024-03-21 02:56] LABS: BASOPHILS ABSOLUTE AUTO 0.09 K/mm3 (0.00-0.23); BASOPHILS PERCENT AUTO 1 % (0-2); EOSINOPHILS ABSOLUTE AUTO 0.16 K/mm3 (0.00-0.68); EOSINOPHILS PERCENT AUTO 2 % (0-6); Hematocrit 27.1 % (33.0-51.0); IMMATURE GRAN ABSOLUTE AUTO 0.02 K/mm3 (0.00-0.10); IMMATURE GRAN PERCENT AUTO 0 % (0-1); LYMPHOCYTES ABSOLUTE AUTO 1.34 K/mm3 (0.84-5.20); LYMPHOCYTES PERCENT AUTO 18 % (21-46); MONOCYTES ABSOLUTE AUTO 1.07 K/mm3 (0.16-1.47); MONOCYTES PERCENT AUTO 14 % (4-13); Mean Corpuscular HGB 29.3 pg (26.0-34.0); Mean Corpuscular HGB Conc 33.2 g/dL (31.5-36.5); Mean Corpuscular Volume 88 fL (80-100); Mean Platelet Volume 11.7 fL (9.1-12.4); NEUTROPHILS ABSOLUTE AUTO 4.91 K/mm3 (1.96-9.15); NEUTROPHILS PERCENT AUTO 65 % (41-73); NRBC ABSOLUTE 0.02 K/mm3 (0.00-0.02); NRBC Auto 0.3 /100 WBC (0.0-0.2); Platelet Count 345 K/mm3 (150-400); RDW Coefficient Variation 17.4 % (11.7-14.2); RDW Standard Deviation 54.2 fL (35.1-46.3); Red Blood Cell Count 3.07 M/mm3 (3.80-5.20); White Blood Cell Count 7.59 K/mm3 (4.00-11.30)
[2024-03-21] MEDS ORDERED: Lactated Ringer's 500 ML IV SCH (03:00)
[2024-03-21 03:30] LABS: Albumin, Blood 2.4 g/dL (3.4-5.0); Albumin/Globulin Ratio 0.6 (0.8-1.8); Bilirubin, Total 0.7 mg/dL (0.1-1.0); Bun/Creatinine Ratio 17.2 (12.0-20.0); Calcium, Blood 8.6 mg/dL (8.5-10.1); Creatinine, Blood 0.93 mg/dL (0.40-1.00); Globulin, Blood 3.8 g/dL (2.2-4.0); Potassium, Blood 4.1 mmol/L (3.5-5.5); Total Protein, Blood 6.2 g/dL (6.4-8.2)
--- NOTE | 2024-03-21 04:43 | NUR ---
TALKED WITH MD REGARDING HOME DOSE OF MEDICATIONS TO BE ADDED AND MD WOULD LIKE TO PASS THAT ALONG TO DAY SHIFT MD FOR FURTHER EVALUATION.
--- NOTE | 2024-03-21 04:46 | NUR ---
SHIFT SUMMARY: PATIENT IS ALERT AND ORIENTED X4 AND COOPERATIVE WITH HER CARE. IS SATTING >92% ON ROOM AIR. ON TELE SHOWING AFIB WITH RATE BETWEEN 120-140. AN EKG WAS DONE AND SHOWED AFIB. RECEIVED METOPROLOL PUSH'S PER EMAR TO CONTROL HEART RATE. MEDICATIONS RECORD IS RECONCILLED AND THIS RN MENTIONED TO TOPPIECE CHOPPER RESIDENT THAT HOME DOSE DILTIAZEM WAS NOT STARTED AND RESIDENT WOULD LIKE DAY SHIFT MD TO TAKE A LOOK AT THAT. PATIENT STATED THROUGHOUT THE SHIFT SHE FELT LIKE HER WORK OF BREATHING WAS ELEVATED. VITAL SIGNS REMAINED STABLE AND PATIENT SHORTLY AFTER CAME DOWN AND WAS ABLE TO GET SOME REST. WILL CONTINUE TO MONITOR UNTIL SHIFT CHANGE. PATIENT IS RESTING WITH BED AT THE LOWEST POSITION AND THE CALL LIGHT WITHIN REACH.
[2024-03-21] MEDS ORDERED: Metoprolol Tartrate 1 MG/ML 5 ML VIAL IV PRN (05:15)
--- NOTE | 2024-03-21 05:18 | NUR ---
CALL PLACED TO MD REGARDING PATIENT HEART RATE TOUCHING 170'S, NEW ORDERS WERE PLACED PER EMAR.
[2024-03-21] MEDS ORDERED: Levothyroxine Sodium 0.088 MG Tab PO SCH (06:00)
[2024-03-21] MEDS ORDERED: dilTIAZem HCL 30 MG TAB PO ONE (08:30)
[2024-03-21] MEDS ORDERED: Furosemide 20 MG Tab PO SCH (09:00)
[2024-03-21] MEDS ORDERED: Metoprolol Succinate 50 MG TABCR PO SCH ×2 (09:00)
[2024-03-21] MEDS ORDERED: Lactated Ringer's 1,000 ML IV SCH (09:50)
[2024-03-21] MEDS ORDERED: Lactated Ringer's 500 ML IV ONE (09:50)
[2024-03-21] MEDS ORDERED: FentaNYL Citrate 50 MCG/ML 2 ML Injection IV PRN (09:55)
[2024-03-21] MEDS ORDERED: dilTIAZem HCL 30 MG TAB PO SCH (11:30)
--- NOTE | 2024-03-21 11:48 | NUR ---
WHILE THIS RN WAS AT BREAK THE BREAK RN ROBERT RICHTER ASSISTED THE PORCELAIN FINISH SPRAYER WITH A BEDBATH ON THE PT. DURING THAT EVENT ROBERT VAUGHAN DID LEFT THIGHT WOUND CARE. THE SITE WAS CLEANED, ABD PADS PLACED, IT WAS WRAPPED WITH KURLEX, AND THE WRAPPED WITH MAYLIN WRAP. WE ARE WAITING FOR DR. PIERCE TO SEE THE PT AND PLACE EXACT WOUND CARE ORDERS AND COME UP WITH A PLAN OF CARE. PT NPO SINCE ABOUT [address]UA. WOUND CULTURE RESULTS DISCUSSED WITH DR. CHUA.
--- NOTE | 2024-03-21 17:49 | NUR ---
SHIFT SUMMARY THE PT IS ANXIOUS AT TIMES, BUT ORIENTEDX4, SHE HAS BEEN IN BED THIS SHIFT D/T HR CONTROL AND DRAINAGE ON LEFT OUTER THIGHT FROM RECENT LEFT HIP SURGERY. DR. CHUA EXAMINED THE PT AND WANT'S DR. PIERCE TO PLACE WOUND CARE ORDERED. WE HAVE TALKED W/ DR. PIERCE AND HE STATED HE WOULD SEE THE PT TODAY. HE HAS NOT SEEN THE PT YET THIS SHIFT. THE PT HAS BEEN NPO SINCE THIS MORNING. ON TELE PT HAS BEEN AFLUTTER 90'S-160'S. PT SHOWED IMPROVEMENT WITH ORAL CARDIZEM BEFORE MEALS BUT WOULD TACH BACK UP ABOUT AN HOUR BEFOR ETH ENXT DOSE. THIS EVENING ABOUT 1600, THIS RN CALLED DR. CHUA AND UPDATED HER ON THE HR AND ASKED IF WE WANTED ANY COVERAGE DURING THE NIGHT. DR. CHUA WANTED TO D/C THE ORAL CARDIZEM AT THIS TIME AND START THE PT ON A CARDIZEM GTT. DR. CHUA WANTS THE PT'S HR TITRAITED TO <120 W/ THE IV CARDIZEM, SHE WILL REASSESS TOMORROW. THE PT'S ELIQUIS WAS D/C'D D/T THE DRAINAGE IN THE PT'S LEFT THIGH PER DR. CHUA, AND TRESSA BLAIR AND A RIGHT SCD WAS PLACED ON THE PT. WAITING FOR ORDERS FROM DR. PIERCE. THIS RN SPOKE WITH THE PT'S THIS SHIFT AND UPDATED HIM ON CARE. HE WOULD LIKE TO BE UPDATED AGAIN AFTER DR. PIERCE SEE'S THE PT. HER WOUND WAS REDRESSED THIS SHIFT. D/T ELEVATED HR AND INCREASED HR W/ ACITIVTY THE PT HAS NOT BEEN OUT OF BED TODAY AND HAS A PURWICK DRAINING TO LIS. THE PT HAS HER CALL LIGHT IN REACH, BED IN LOW. SEE NOTES FOR UPDATES.
--- NOTE | 2024-03-21 18:31 | NUR ---
FILTER ASSEMBLER CABE AND I SPOKE W/ DR. PIERCE. DR. CHANEY IS GOING TO COME SEE THE PT. THE PT NEEDS TO BE NPO AT 0000 AND CAN RESUME A DIET TODAY.
[2024-03-21] MEDS ORDERED: Vancomycin HCL 1,000 MG in NS 250 ML IV SCH (20:00)
[2024-03-22] VITALS (17 sets, daily range): BP systolic 113–141; BP diastolic 58–98
[2024-03-22] MEDS ORDERED: HyDROXyzine HCl 25 MG Tab PO ONE (02:50)
[2024-03-22 04:05] LABS: BASOPHILS ABSOLUTE AUTO 0.07 K/mm3 (0.00-0.23); BASOPHILS PERCENT AUTO 1 % (0-2); EOSINOPHILS ABSOLUTE AUTO 0.19 K/mm3 (0.00-0.68); EOSINOPHILS PERCENT AUTO 3 % (0-6); Hematocrit 25.8 % (33.0-51.0); Hemoglobin 8.5 g/dL (11.5-16.0); IMMATURE GRAN ABSOLUTE AUTO 0.01 K/mm3 (0.00-0.10); IMMATURE GRAN PERCENT AUTO 0 % (0-1); LYMPHOCYTES ABSOLUTE AUTO 0.91 K/mm3 (0.84-5.20); LYMPHOCYTES PERCENT AUTO 14 % (21-46); MONOCYTES PERCENT AUTO 12 % (4-13); Mean Corpuscular HGB 29.3 pg (26.0-34.0); Mean Corpuscular HGB Conc 32.9 g/dL (31.5-36.5); Mean Corpuscular Volume 89 fL (80-100); Mean Platelet Volume 11.7 fL (9.1-12.4); NEUTROPHILS ABSOLUTE AUTO 4.46 K/mm3 (1.96-9.15); NEUTROPHILS PERCENT AUTO 69 % (41-73); NRBC ABSOLUTE 0.02 K/mm3 (0.00-0.02); NRBC Auto 0.3 /100 WBC (0.0-0.2); Platelet Count 324 K/mm3 (150-400); RDW Coefficient Variation 17.4 % (11.7-14.2); RDW Standard Deviation 54.7 fL (35.1-46.3); White Blood Cell Count 6.44 K/mm3 (4.00-11.30)
[2024-03-22 04:19] LABS: C-REACTIVE PROTEIN, EXT RANGE 7.02 mg/dL (0.000-0.300)
[2024-03-22 04:20] LABS: Bun/Creatinine Ratio 14.1 (12.0-20.0); Calcium, Blood 8.5 mg/dL (8.5-10.1); Creatinine, Blood 0.92 mg/dL (0.40-1.00); Potassium, Blood 3.6 mmol/L (3.5-5.5)
--- NOTE | 2024-03-22 05:56 | NUR ---
SHIFT SUMMARY PT HAS BEEN ANXIOUS AND RESTLESS MOST OF THE NIGHT. 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 TECHNIQUE.PT NPO SINCE MIDNIGHT.
--- NOTE | 2024-03-22 06:30 | NUR ---
CHANGE OF LUNG SOUNDS PT NOTED TO BE COUGHING ON/OFF,COUGH DRY IN NATURE.PT HAS BEEN REQUESTING ORAL SWABS TO MOISTEN ORAL CAVITY.LUNG SOUNDS ASSESSMENT COMPLETED,RALES NOTED THROUGHOUT. NOTIFIED. SAID TO HOLD THE CONTINOUS IV FLUID INFUSION .FLUIDS STOPPED ORDERED.
--- NOTE | 2024-03-22 11:58 | NUR ---
am note this rn assumed care at 0700. vital signs stable. tele aflutter in 110s-120s with cardizem at 5mg/hr. spo2 >95% on room air. patient is alert and oriented x4. neuro is intact. patient is able to make needs known and uses call light appropriately. patient is very anxious about procedure this afternoon and has made that known. denies chest pain/pressure or shortness of breath. patient at the start of this rn s shift reported pain 8/10 in left leg and medicated per emar, and upon reassessment patient level of pain at 6/10. patient right lung sounds had dim crackles, otherwise lung sounds clear. see shift assessment for further detials. agsten in to see patient and spoke with patient about doing a blood transfusion and receiving lasix. patient agreees to this. patient remains npo for wash out this afternoon.
[2024-03-22] MEDS ORDERED: Furosemide 10 MG / ML 2ML Vial IV ONE (12:00)
[2024-03-22] MEDS ORDERED: NS 250 ML IV PRN (12:30)
--- NOTE | 2024-03-22 13:34 | NUR ---
update blood transfusion infusing.
[2024-03-22] MEDS ORDERED: Metoprolol Tartrate 1 MG/ML 5 ML VIAL IV PRN (16:20)
[2024-03-22] MEDS ORDERED: ALPRAZolam 0.5 MG Tab PO PRN (18:00)
[2024-03-22] MEDS ORDERED: ALPRAZolam 0.5 MG Tab PO ONE (18:00)
--- NOTE | 2024-03-22 18:10 | NUR ---
shift summary nurse from day surg/or called that patient unable to go for procedure today due to md smyth in the previous case still. this rn requested for md to come talk to patient due to patient being anxious throughout the day and becoming frustrated with not being able to eat, and message was passed along. this rn updated patient and put in tray order. this rn spoke with patient and updated on wash out being moved to tomorrow. this rn called md warren to update her on current plan and requesting for medication for anxiety for patient. see new orders. this rn spoke with the patient about appropriate use of call light use and clustering requests and care. patient semiconductor packages leak tester light frequently throughout the day or calling out in the [place] to staff. patient verbalized understanding and aplogized. this rn informed her to not aplogize and was just educating her semiconductor packages leak tester light use. patient had one unit of blood transfused today and tolerated it well. patient received on 5mg iv push of metoprolol for heart rate sustaining >110 and brought heart rate down to 90s. cardizem infusing at 15mg/hr. blood pressure holding. patient heart rate currently in 120s while eating. no acute changes. see previous notes and charting
[2024-03-22 19:06] LABS: Vancomycin, Trough 17.9 ug/mL (5.0-10.0)
--- NOTE | 2024-03-22 21:14 | NUR ---
CONFUSED PT PULLED OUT BOTH IVS AND TELEMETRY PATCHES.PT A&O X4 BUT REQUIRING REDIRECTION CONSTANTLY TO STAY IN BED.PT STATES THAT SHE WOULD LIKE TO GO TO BED,REMINDED THAT SHE IS IN BED.PT REQUIRES A SITTER TO MONITOR HER FROM PULLING THE LINES.CHARGE NURSE NOTIFIED.SITTER REQUESTED.
[2024-03-23] VITALS (31 sets, daily range): BP systolic 14–158; BP diastolic 51–109
--- NOTE | 2024-03-23 04:06 | NUR ---
BLADDER SCAN NO URINE OUTPUT NOTED SINCE 1899.PT OCCASIONALLY STATES THAT SHE WOULD LIKE TO URINATE,PT ENCOURAGED TO URINATE SINCE SHE HAD THE PUREWICK ON BUT PT DID NOT VOID.PT BLADDER SCANNED >647ML IN BLADDER.PT DENIES SUPRAPUBIC PAIN.PT TRANSFERRED TO THE BEDSIDE COMMODE WITH 2 ASSIST.PT VOIDED 700ML OF YELLOW URINE AND HAD A SMALL BOWEL MOVEMENT.
[2024-03-23 04:14] LABS: BASOPHILS ABSOLUTE AUTO 0.09 K/mm3 (0.00-0.23); BASOPHILS PERCENT AUTO 2 % (0-2); EOSINOPHILS ABSOLUTE AUTO 0.29 K/mm3 (0.00-0.68); EOSINOPHILS PERCENT AUTO 5 % (0-6); Hematocrit 36.7 % (33.0-51.0); IMMATURE GRAN ABSOLUTE AUTO 0.02 K/mm3 (0.00-0.10); IMMATURE GRAN PERCENT AUTO 0 % (0-1); LYMPHOCYTES ABSOLUTE AUTO 0.87 K/mm3 (0.84-5.20); LYMPHOCYTES PERCENT AUTO 14 % (21-46); MONOCYTES ABSOLUTE AUTO 0.71 K/mm3 (0.16-1.47); MONOCYTES PERCENT AUTO 12 % (4-13); Mean Corpuscular HGB 28.4 pg (26.0-34.0); Mean Corpuscular HGB Conc 32.7 g/dL (31.5-36.5); Mean Corpuscular Volume 87 fL (80-100); Mean Platelet Volume 11.7 fL (9.1-12.4); NEUTROPHILS ABSOLUTE AUTO 4.07 K/mm3 (1.96-9.15); NEUTROPHILS PERCENT AUTO 67 % (41-73); NRBC ABSOLUTE 0.02 K/mm3 (0.00-0.02); NRBC Auto 0.3 /100 WBC (0.0-0.2); Platelet Count 337 K/mm3 (150-400); RDW Standard Deviation 55.1 fL (35.1-46.3); Red Blood Cell Count 4.23 M/mm3 (3.80-5.20); White Blood Cell Count 6.05 K/mm3 (4.00-11.30)
[2024-03-23 04:40] LABS: Calcium, Blood 8.6 mg/dL (8.5-10.1)
--- NOTE | 2024-03-23 06:49 | NUR ---
END OF SHIFT NOTE PT SLEEPING AT THIS TIME.HAS BEEN NPO SINCE MIDNIGHT.DILTIAZEM INFUSING AT 10MG/HR.GIVEN PRN METOPROLOL ONCE DURING THE SHIFT FOR A HR OF 130BPM AND SUSTAINING.BP STABLE THROUGHOUT THE NIGHT.SCHEDULED FOR A WASHOUT AT 0800.
[2024-03-23] MEDS ORDERED: propofoL 20 ML IV ONE (07:49)
[2024-03-23] MEDS ORDERED: FentaNYL Citrate 50 MCG/ML 2 ML Injection ONE ×2 (07:49→09:26)
[2024-03-23] MEDS ORDERED: Potassium Chl 20MEQ/Water100ML 100 ML IV STA (07:50)
[2024-03-23] MEDS ORDERED: Vancomycin HCl 1000 MG ADDvantage ONE (07:59)
[2024-03-23] MEDS ORDERED: Ondansetron HCl 2 MG / ML 2ML Vial ONE (08:25)
[2024-03-23] MEDS ORDERED: Phenylephrine HCl 100 MCG/ML-NS 10MLSYR (1MG/10ML) ONE (08:32)
[2024-03-23] MEDS ORDERED: HYDROmorphone HCl/Pf 1MG SYR ONE (09:47)
--- NOTE | 2024-03-23 10:30 | NUR ---
AM NOTE/POST WASHOUT: UPON SHIFT START PATIENT SLEEPING BUT WAKES TO VOICE/TOUCH. SPEECH MUMBLED. PATIENT ABLE TO ANSWER ALL ORIENTING QUESTIONS. DENIES PAIN AT TIME OF ASSESSMENT. LEFT HIP DRESSING C/D/I. AM VITALS STABLE. TELE SHOWING AFLUTTER WITH HR 100-120'S. CARDIZEM GTT ON AT 10 MG/HR AT START OF SHIFT. DENIES CHEST PAIN/PRESSURE/PALPITATIONS. PPP. TRESSA HOSE IN PLACE WELL SCD TO RIGHT CALF. ON ROOM AIR SATING ABOVE 95%. LUNG SOUNDS CLEAR. PATIENT SNORING WHEN ASLEEP. BOWEL TONES PRESENT IN ALL 4 QUADRANTS. NPO AT THIS TIME FOR SURGERY. AM MEDS HELD. DR. NGUYỄN CALLED TO UPDATE ON AM POTASSIUM. IV KCL ORDERS IN PLACE. PATIENT TO SURGERY AT 0755 AND IV POTASSIUM SENT TO OR. PATIENT BACK TO ROOM AT APPROX 1023. PATIENT SLEEPY BUT WAKES TO VOICE/TOUCH. NINO AT BEDSIDE. DR. CHANEY TO BEDSIDE TO UPDATE , ORDERS TO CHANGE WOUND VAC M,W,F. ORDERS IN PLACE. PATIENT REMAINS ORIENTED. PERRLA. COMPLAINS OF PAIN TO LEFT HIP BUT FALLS BACK ASLEEP AFTER TALKING. WOUND VAC IN PLACE TO LEFT HIP, SUCTION AT 120MMHG, NO LEAKS, DRAINING VERY SMALL AMOUNT OF BRIGHT RED BLOOD. POST OP VITALS IN PROGRESS. CARDIZEM AT 15 MG/HR UPON ARRIVAL FROM PACU, THIS RN TITRATED BACK DOWN TO 10MG/HR, SEE EMAR AND FLOWSHEET. TELE CONTINUES TO SHOW AFLUTTER WITH HR 100-110'S. ON 3L NASAL CANNULA POST SURGERY, THIS RN TITRATED TO ROOM AIR. SATING ABOVE 95% ON RA. AT THIS TIME. PUREWICK PLACED POST SURG. Q2 TURNING AND NEEDED. ORDERS CONTINUE FOR WEIGHT BEARING TOLERATED ON LEFT SIDE. REMAINS AT BEDSIDE. PATIENT TO SLEEPY AT THIS TIME TO FEED OR ADMINISTER PO MEDS. HOLDING TRAY AND MEDS AT THIS TIME. CALL LIGHT IN REACH, BED ALARM IN PLACE.
[2024-03-23] MEDS ORDERED: HYDROcodone 5-APAP 325 TAB PO PRN (15:45)
--- NOTE | 2024-03-23 17:12 | NUR ---
[facility]HE[facility] MONITOR ALARMING ST ELEVATION. PATIENT ASYMPTOMATIC. DENIES CHEST PAIN/PRESSURE/PALPITAITONS. DENIES SOB. VITAL SIGNS STABLE. DR. NGUYỄN CALLED AND EKG ORDER PLACED. EKG COMPLETED. DR. NGUYỄN TO FLOOR TO SEE EKG. CBC AND TROPONIN ORDERED. LABS DRAWN AND PENDING.
[2024-03-23 17:16] LABS: BASOPHILS ABSOLUTE AUTO 0.08 K/mm3 (0.00-0.23); BASOPHILS PERCENT AUTO 1 % (0-2); EOSINOPHILS ABSOLUTE AUTO 0.33 K/mm3 (0.00-0.68); EOSINOPHILS PERCENT AUTO 4 % (0-6); Hematocrit 32.1 % (33.0-51.0); Hemoglobin 10.4 g/dL (11.5-16.0); IMMATURE GRAN ABSOLUTE AUTO 0.02 K/mm3 (0.00-0.10); IMMATURE GRAN PERCENT AUTO 0 % (0-1); LYMPHOCYTES ABSOLUTE AUTO 0.98 K/mm3 (0.84-5.20); LYMPHOCYTES PERCENT AUTO 13 % (21-46); MONOCYTES ABSOLUTE AUTO 0.83 K/mm3 (0.16-1.47); MONOCYTES PERCENT AUTO 11 % (4-13); Mean Corpuscular HGB 28.3 pg (26.0-34.0); Mean Corpuscular HGB Conc 32.4 g/dL (31.5-36.5); Mean Corpuscular Volume 88 fL (80-100); Mean Platelet Volume 11.6 fL (9.1-12.4); NEUTROPHILS ABSOLUTE AUTO 5.62 K/mm3 (1.96-9.15); NEUTROPHILS PERCENT AUTO 71 % (41-73); NRBC ABSOLUTE 0.02 K/mm3 (0.00-0.02); NRBC Auto 0.3 /100 WBC (0.0-0.2); Platelet Count 316 K/mm3 (150-400); RDW Coefficient Variation 17.9 % (11.7-14.2); RDW Standard Deviation 55.8 fL (35.1-46.3); Red Blood Cell Count 3.67 M/mm3 (3.80-5.20); White Blood Cell Count 7.86 K/mm3 (4.00-11.30)
--- NOTE | 2024-03-23 18:38 | NUR ---
SEE PREVIOUS NOTES FOR UPDATES. PATIENT REMAINS ALERT AND ORIENTED. MEDICATED PER EMAR FOR LEFT HIP PAIN. PAIN RESOLVED WITH 1 TAB OF NORCO. TOLERATING PO DIET. ON ROOM AIR. CONTINUES TO DENY CHEST PAIN/PRESSURE/PALPITATIONS. AFLUTTER WITH HR 90'S. CARDIZEM GTT REMAINS ON 5MG/HR AT THIS TIME. AT BEDSIDE. PUREWICK IN PLACE. CALL LIGHT IN REACH.
[2024-03-23] MEDS ORDERED: Apixaban 5 MG Tab PO SCH (21:00)
--- NOTE | 2024-03-23 21:07 | NUR ---
ASSUMPTION OF CARE ASSUMMED CARE OF PT AT 1900.PT DROWSY BUT EASILY AROUSABLE,ORIENTED X4.WOUND VAC PROVIDING THERAPY ORDERED,SMALL AMOUNT OF SANGUINEOUS DRAINAGE NOTED IN WOUND VAC CANNISTER,DRESSING TO WOUND CLEAN,DRY AND INTACT.PT RATE PAIN AT 2/10,DENIES NEED FOR PRN PAIN MEDS AT THIS TIME.
[2024-03-24] VITALS (8 sets, daily range): BP systolic 105–136; BP diastolic 61–84
[2024-03-24 04:08] LABS: BASOPHILS ABSOLUTE AUTO 0.07 K/mm3 (0.00-0.23); BASOPHILS PERCENT AUTO 1 % (0-2); EOSINOPHILS ABSOLUTE AUTO 0.28 K/mm3 (0.00-0.68); EOSINOPHILS PERCENT AUTO 4 % (0-6); Hematocrit 31.3 % (33.0-51.0); Hemoglobin 10.2 g/dL (11.5-16.0); IMMATURE GRAN ABSOLUTE AUTO 0.02 K/mm3 (0.00-0.10); IMMATURE GRAN PERCENT AUTO 0 % (0-1); LYMPHOCYTES ABSOLUTE AUTO 0.95 K/mm3 (0.84-5.20); LYMPHOCYTES PERCENT AUTO 12 % (21-46); MONOCYTES ABSOLUTE AUTO 0.78 K/mm3 (0.16-1.47); MONOCYTES PERCENT AUTO 10 % (4-13); Mean Corpuscular HGB 28.3 pg (26.0-34.0); Mean Corpuscular HGB Conc 32.6 g/dL (31.5-36.5); Mean Corpuscular Volume 87 fL (80-100); Mean Platelet Volume 11.5 fL (9.1-12.4); NEUTROPHILS ABSOLUTE AUTO 5.57 K/mm3 (1.96-9.15); NEUTROPHILS PERCENT AUTO 73 % (41-73); NRBC ABSOLUTE 0.02 K/mm3 (0.00-0.02); NRBC Auto 0.3 /100 WBC (0.0-0.2); Platelet Count 300 K/mm3 (150-400); RDW Coefficient Variation 17.3 % (11.7-14.2); RDW Standard Deviation 54.8 fL (35.1-46.3); Red Blood Cell Count 3.61 M/mm3 (3.80-5.20); White Blood Cell Count 7.67 K/mm3 (4.00-11.30)
[2024-03-24 04:41] LABS: Bun/Creatinine Ratio 14.2 (12.0-20.0); Creatinine, Blood 0.99 mg/dL (0.40-1.00); Potassium, Blood 3.8 mmol/L (3.5-5.5)
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
[2024-03-24] MEDS ORDERED: Digoxin 0.25 MG/ML 2ML Amp IV SCH (08:30)
--- NOTE | 2024-03-24 09:36 | NUR ---
AM NOTE: PATIENT ALERT AND ORIENTED X4. PERRLA, WEARING GLASSES. DENIES NUMBNESS/TINGLING. LIMITED ROM IN LEFT LEG/HIP DUE TO RECENT WASHOUT OF LEFT HIP REPAIR INCISION. WOUND VAC REMAINS IN PLACE AT 120MMHG SUCTION, NO LEAKS. MINIMAL RED DRAINAGE. DRESSING CHANGES FOR WOUND VAC SCHEDULED FOR M,W,F. Q2 TURNING AND NEEDED. TELE SHOWING AFLUTTER WITH HR 90-110'S. CARDIZEM GTT REMAINS ON 10MG/HR. DENIES CHEST PAIN/PRESSURE/PALPITATIONS. SBP 110'S. MINIMAL EDEMA TO LLE. DR. NGUYỄN TO BEDSIDE THIS AM AND DISCUSSED CARDIAC MEDICATIONS WITH PATIENT, PLAN FOR DIGOXIN. ON 1L NASAL CANNULA AT START OF SHIFT. TITRATED TO ROOM AIR WHILE AWAKE BUT NEEDING UP TO 1-3L NASAL CANNULA WHEN SLEEPING. LUNG SOUNDS CLEAR. EVEN AND UNLABORED RESPIRATIONS. PATIENT DENIES SOB/COUGH. TOLERATING PO DIET. DENIES ABDOMINAL PAIN/NAUSEA. BOWEL TONES PRESENT IN ALL [address] DRAINING YELLOW URINE. ATTENDS IN PLACE. PATIENT TAKING PILLS WITH APPLESAUCE. SCATTERED BRUISING TO BILATERAL ARMS. LEFT HIP DRESSING REMAINS C/D/I. AT BEDSIDE AND UPDATED BY THIS RN. CALL LIGHT IN REACH. DENIES NEEDS. PLAN FOR PHYSICAL THERAPY TODAY.
[2024-03-24] MEDS ORDERED: CefTRIAXone Sodium 1,000 MG in NS 100 ML IV SCH (13:00)
--- NOTE | 2024-03-24 18:08 | NUR ---
SHIFT SUMMARY: NO ACUTE CHANGES, SEE AM NOTE. PATIENT VITAL SIGNS STABLE THROUGHOUT SHIFT. IV DIG LOADING, REMAINS ON CARDIZEM AT 5MG/HR. ON 1L NASAL CANNULA WHEN SLEEPING. TOLERATING PO DIET WELL. PUREWICK IN PLACE. WOUND VAC DRESSING REMAINS C/D/I. PLAN FOR WOUND VAC DRESSING CHANGE TOMORROW. AT BEDSIDE. MEDICATED THROUGHOUT THE DAY FOR PAIN. PHYSICAL THERAPY TODAY. CALL LIGHT IN REACH. DENIES NEEDS.
[2024-03-24 19:36] LABS: Vancomycin, Trough 17.3 ug/mL (5.0-10.0)
[2024-03-25 03:13] VITALS: BP 130/75
[2024-03-25 03:17] LABS: BASOPHILS ABSOLUTE AUTO 0.07 K/mm3 (0.00-0.23); BASOPHILS PERCENT AUTO 1 % (0-2); EOSINOPHILS PERCENT AUTO 6 % (0-6); Hematocrit 32.5 % (33.0-51.0); Hemoglobin 10.3 g/dL (11.5-16.0); IMMATURE GRAN ABSOLUTE AUTO 0.01 K/mm3 (0.00-0.10); IMMATURE GRAN PERCENT AUTO 0 % (0-1); LYMPHOCYTES ABSOLUTE AUTO 1.05 K/mm3 (0.84-5.20); LYMPHOCYTES PERCENT AUTO 19 % (21-46); MONOCYTES ABSOLUTE AUTO 0.65 K/mm3 (0.16-1.47); MONOCYTES PERCENT AUTO 12 % (4-13); Mean Corpuscular HGB 28.3 pg (26.0-34.0); Mean Corpuscular HGB Conc 31.7 g/dL (31.5-36.5); Mean Corpuscular Volume 89 fL (80-100); Mean Platelet Volume 11.6 fL (9.1-12.4); NEUTROPHILS PERCENT AUTO 62 % (41-73); Platelet Count 266 K/mm3 (150-400); RDW Coefficient Variation 17.2 % (11.7-14.2); RDW Standard Deviation 55.3 fL (35.1-46.3); Red Blood Cell Count 3.64 M/mm3 (3.80-5.20); White Blood Cell Count 5.48 K/mm3 (4.00-11.30)
[2024-03-25 03:38] LABS: Bun/Creatinine Ratio 16.4 (12.0-20.0); Calcium, Blood 8.2 mg/dL (8.5-10.1); Creatinine, Blood 0.98 mg/dL (0.40-1.00); Magnesium, Blood 1.8 mg/dL (1.6-2.4); Potassium, Blood 3.9 mmol/L (3.5-5.5)
--- NOTE | 2024-03-25 06:22 | NUR ---
EOS: NO SIGNIFICANT CHANGES FROM ASSUMPTION, STILL INFUSING DILT AT 5. WOUND VAC IN PLACE AND ON AT 120 THE WHOLE SHIFT WITH NO INTERRUPTIONS, MILD PEDAL EDEMA FROM THE COMPRESSION WRAPPING, PULSES STRONG. IS NOW AT THE BEDSIDE, UPDATE GIVEN. PATIENT ALERT AND ORIENTED X 4. PLEASANT COOPERATIVE ABLE TO MAKE NEEDS KNOWN, GREAT URINE OUTPUT NO BM FOR THIS RN MINIMAL ORAL INTAKE LESS THAN 300mL. ABLE TO TAKE PILLS WHOLE WITH THINS FOR THIS RN. NO ACUTE CONCERNS AT THIS TIME.
[2024-03-25 07:01] VITALS: BP 122/67
--- NOTE | 2024-03-25 07:38 | NUR ---
AM NOTE: PATIENT ALERT AND ORIENTED. DENIES PAINS THIS AM IN LEFT LEG ALTHOUGH SHE STATES THE PAIN COMES AND GOES. PLAN FOR WOUND VAC CHANGE TODAY. SITTING UPRIGHT IN BED. TELE CONTINUES TO SHOW AFLUTTER WITH HR 90'S. CARDIZEM GTT IN PLACE. DENIES CHEST PAIN/PRESSURE/PALPITATIONS. MINIMAL EDEMA NOTED TO LEFT LEG/ANKLE. PPP. ON ROOM AIR THIS AM SATING MID 90'S. DENIES SOB/COUGH. LUNGS SOUNDS CLEAR. EVEN AND UNLABORED RESPIRATIONS. BOWEL TONES PRESENT IN ALL 4 QUADRANTS. PUREWICK AND ATTENDS IN PLACE. PATIENT FEELING HUNGRY AND REQUESTING BREAKFAST. DENIES ABDOMINAL PAIN/NAUSEA. SCATTERED BRUISING TO BILATERAL ARMS AND SURROUNDING LEFT LEG INCISION. AT BEDSIDE. CALL LIGHT IN REACH. DENIES NEEDS AT THIS TIME.
[2024-03-25] MEDS ORDERED: Digoxin 0.125 MG Tab PO SCH (09:00)
--- NOTE | 2024-03-25 10:14 | NUR ---
DR. MORROW TO BEDSIDE. THIS RN PRESENT FOR MD ROUNDING. PLAN FOR PO DIG TO BE GIVEN AND CARDIZEM GTT TO BE TURNED OFF ONE HOUR POST PO DIG ADMINISTRATION. AT BEDSIDE FOR MD ROUNDING. CARE MANAGEMENT NOTIFIED OF PATIENTS RESIDING IN [place] AND INQUIRING ABOUT SNF PLACEMENT IN [place]. MEDICAL RECORD FORMS GIVENT TO PATIENT AND SO PATIENTS PCP CAN HAVE HOSPITAL STAY RECORDS. CARD GTT TURNED OFF AT 0957 SEE EMAR
[2024-03-25 12:24] VITALS: BP 126/74
--- NOTE | 2024-03-25 13:33 | NUR ---
WOUND VAC DRESSING CHANGE COMPLETED. SEE CHART FOR PAPER PHOTOS.
[2024-03-25] MEDS ORDERED: DAPTOmycin 400 MG in NS 50 ML IV SCH (14:00)
[2024-03-25 15:52] VITALS: BP 121/72
--- NOTE | 2024-03-25 18:12 | NUR ---
SEE NOTES FOR UPDATES THROUGHOUT THE DAY. PATIENT REMAINS ALERT AND ORIENTED. MEDICATED FOR PAIN THROUGHOUT SHIFT. ICE PACKS IN PLACE FOR PAIN MANAGEMENT. PATIENT ABLE TO TURN SELF IN BED BUT STAFF ASSISTING WITH Q2 TURNS TO HELP PLACE PILLOWS AND ELEVATE LEFT LEG. WOUND VAC CHANGED THIS SHIFT, SEE PAPER CHART FOR PHOTOS. IV ABX INFUSED. CARDIZEM GTT TURNED OFF AROUND 10 AM, SEE EMAR DOCUMENTATION AND VITALS FOR HR TREND. AT BEDSIDE THROUGHOUT SHIFT AND UPDATED ON PLAN OF CARE. PATIENT SITTING IN BED EATING DINNER AT THIS TIME. PT AND OT IN TODAY. PATIENT UP TO EDGE OF BED AND STANDING TWICE WITH THIS RN AND OT.
[2024-03-25 19:58] VITALS: BP 136/59
--- NOTE | 2024-03-25 20:53 | NUR ---
START OF SHIFT THIS RN ASSUMED CARE AT APPROXIMATELY 1900. PT RESTING IN BED W/O ANY COMPLAINTS OR PAIN. PT PLACED ON 2L NC FOR SLEEP APNEA. PT L LEG DRESSING APPEARS C/D/I. WILL CONTINUE PLAN OF CARE.
[2024-03-26 00:17] VITALS: BP 116/93
[2024-03-26 04:11] LABS: BASOPHILS ABSOLUTE AUTO 0.07 K/mm3 (0.00-0.23); BASOPHILS PERCENT AUTO 1 % (0-2); EOSINOPHILS ABSOLUTE AUTO 0.32 K/mm3 (0.00-0.68); EOSINOPHILS PERCENT AUTO 6 % (0-6); Hematocrit 32.3 % (33.0-51.0); Hemoglobin 10.2 g/dL (11.5-16.0); IMMATURE GRAN ABSOLUTE AUTO 0.02 K/mm3 (0.00-0.10); IMMATURE GRAN PERCENT AUTO 0 % (0-1); LYMPHOCYTES ABSOLUTE AUTO 1.24 K/mm3 (0.84-5.20); LYMPHOCYTES PERCENT AUTO 21 % (21-46); MONOCYTES ABSOLUTE AUTO 0.75 K/mm3 (0.16-1.47); MONOCYTES PERCENT AUTO 13 % (4-13); Mean Corpuscular HGB Conc 31.6 g/dL (31.5-36.5); Mean Corpuscular Volume 89 fL (80-100); Mean Platelet Volume 11.6 fL (9.1-12.4); NEUTROPHILS ABSOLUTE AUTO 3.45 K/mm3 (1.96-9.15); NEUTROPHILS PERCENT AUTO 59 % (41-73); Platelet Count 280 K/mm3 (150-400); RDW Coefficient Variation 16.7 % (11.7-14.2); RDW Standard Deviation 53.3 fL (35.1-46.3); Red Blood Cell Count 3.64 M/mm3 (3.80-5.20); White Blood Cell Count 5.85 K/mm3 (4.00-11.30)
--- NOTE | 2024-03-26 04:34 | NUR ---
SHIFT SUMMARY PT SLEPT W/O ANY NEW ACUTE EVENTS OVER NIGHT. PT HR WOULD PEAK AT 140 W/ URINATION AND MAINTAINED AROUND 110-120 BEFORE THE METOPROLOL TOOK AFFECT. AFTER AFFECT PT HR 80-90'S. PT COMPLAINED OF PAIN 1X AND WAS TREATED WITH MEDS ON EMAR. PT PLACED ON 1-2L NC FOR SLEEP APNEA. WILL CONTINUE PLAN OF CARE.
[2024-03-26 04:40] LABS: Anion Gap 10 mmol/L (3-11); Blood Urea Nitrogen 12 mg/dL (8-24); Bun/Creatinine Ratio 13.5 (12.0-20.0); CO2, Blood 29 mmol/L (21-32); Calcium, Blood 8.4 mg/dL (8.5-10.1); Chloride, Blood 101 mmol/L (98-108); Creatinine, Blood 0.89 mg/dL (0.40-1.00); Digoxin (Lanoxin) 1.04 ug/mL (0.80-2.00); Glomerular Filtration Rate 66 (60-); Glucose, Blood 101 mg/dL (70-99); Potassium, Blood 3.5 mmol/L (3.5-5.5); Sodium, Blood 136 mmol/L (136-145)
[2024-03-26 04:43] VITALS: BP 122/71
[2024-03-26 07:29] VITALS: BP 113/71
[2024-03-26 12:11] LABS: SARS-Cov-2 (COVID-19) PCR, MMC NEGATIVE (NEGATIVE)
[2024-03-26 12:33] VITALS: BP 104/58
[2024-03-26] MEDS ORDERED: METO50ER PO (13:47)
[2024-03-26] MEDS ORDERED: DIGOX125 MC1 PO (13:50)
[2024-03-26] MEDS ORDERED: CUBICIN RF500 M1 IV (13:50)
[2024-03-26] MEDS ORDERED: HYDR1TAB94 PO (13:52)
[2024-03-26] MEDS ORDERED: CIPR500 PO (13:55)
--- NOTE | 2024-03-26 14:03 | NUR ---
UPDATE ORDERS FOR DISCHARGE IN [facility] PROVIDED. PT AND SPOUSE NOTIFIED BY SUSANNA. FACILITY DISCHARGE COMPLETE. IV REMOVED, BUT MIDLINE LEFT IN PLACE FOR IV ANTIBIOTICS. PT EDUCATED ON DISCHARGE INSTRUCTIONS. [facility] WOUND VAC REMOVED AND RETURNED TO NURSING JAVASCRIPT DEVELOPER. [facility] CALLED AND REPORT GIVEN. PT TAKEN VIA WITH TRANSPORT WITH PACKET FOR FACILITY.
== END 2024-03-26 14:07 | DRG 803 ==
LOC: ER 07:18 → ERHOLD 09:39 → PCU 09:39
PROVIDERS: Emergency Medicine; Hospitalist; Internal Medicine; ADMIT Internal Medicine
PROC: 30233N1 Transfusion of Nonautologous Red Blood Cells into Peripheral Vein, Percutaneous Approach (ICD-10-PCS; principal; 2024-03-20)
PROC: 0JBM0ZZ Excision of Left Upper Leg Subcutaneous Tissue and Fascia, Open Approach (ICD-10-PCS; 2024-03-23)
DX: D62 Acute posthemorrhagic anemia (principal); I48.20 Chronic atrial fibrillation, unspecified; M00.9 Pyogenic arthritis, unspecified; L02.416 Cutaneous abscess of left lower limb; E87.6 Hypokalemia; E03.9 Hypothyroidism, unspecified; I12.9 Hypertensive chronic kidney disease with stage 1 through stage 4 chronic kidney disease, or unspecified chronic kidney disease; N18.30 Chronic kidney disease, stage 3 unspecified; D63.1 Anemia in chronic kidney disease; I44.7 Left bundle-branch block, unspecified; B95.62 Methicillin resistant Staphylococcus aureus infection as the cause of diseases classified elsewhere; Z86.73 Personal history of transient ischemic attack (TIA), and cerebral infarction without residual deficits; Z87.81 Personal history of (healed) traumatic fracture; Z88.5 Allergy status to narcotic agent; Z88.8 Allergy status to other drugs, medicaments and biological substances; Z91.018 Allergy to other foods; Z79.01 Long term (current) use of anticoagulants; Z79.899 Other long term (current) drug therapy; Z79.84 Long term (current) use of oral hypoglycemic drugs; Z79.890 Hormone replacement therapy; Z79.4 Long term (current) use of insulin
CPT/HCPCS: 36415; 36430; 76882; 80048; 80053; 80162; 80202; 83735; 84443; 84484; 85014; 85018; 85025; 85651; 86140; 86850; 86900; 86901; 86923; 87070; 87071; 87075; 87077; 87186; 87205; 93005; 93010; 94760; 94762; 96361; 96374; 96376; 97110; 97161; 97165; 97530; 97535; 99284-25; A9270; C1751; J0690; J0696; J0878; J1160; J1171; J1940; J2371; J2405; J2704; J3010; J3370; J3480; J7030; J7050; J7120; P9016; U0002